=== PATIENT | female | born 1950 | race Hispanic/Latino ===

== ENCOUNTER 2019-01-28 08:56 | Emergency (ER) | payer OTHER ==
[~2019-01-28] VITALS: Ht 165.1 cm; Wt 74.8 kg
[~2019-01-28 08:56] MED LIST: EXCEDRIN EXTRA1 EAC1 PO; IBUPROFEN200 MG PO
[2019-01-28] MEDS ORDERED: ASPIRIN 81 MG CHEW TAB PO ONE (09:15)
[2019-01-28 09:43] LABS: BASOPHILS % 0.4 % (0.0-1.0); EOSINOPHILS # (AUTO) 0.2 (0.0-0.4); EOSINOPHILS % 2.9 % (0.0-6.0); HEMATOCRIT 42.2 % (34.2-44.1); HEMOGLOBIN 13.9 g/dL (12.0-16.0); LYMPHOCYTES # (AUTO) 1.6 (1.0-3.2); LYMPHOCYTES % 19.5 % (18.0-39.1); MEAN CORPUSCULAR HEMOGLOBIN 27.6 pg (28-32); MEAN CORPUSCULAR HGB CONC 32.9 g/dL (31-35); MEAN CORPUSCULAR VOLUME 83.9 fL (81-99); MONOCYTES # (AUTO) 0.3 (0.2-0.8); PLATELET COUNT 213 x10e3/uL (140-360); RED BLOOD COUNT 5.03 x10e6/uL (3.6-5.1)
[2019-01-28 10:00] LABS: ALANINE AMINOTRANSFERASE 22 IU/L (0-55); ALBUMIN 3.5 g/dL (3.5-5.0); ALKALINE PHOSPHATASE 79 IU/L (40-150); ANION GAP 13.2 mmol/L (8-16); BLOOD UREA NITROGEN 13 mg/dL (7-26); BUN/CREATININE RATIO 17 (6-25); CALCIUM 9.1 mg/dL (8.4-10.2); CARBON DIOXIDE 22 mmol/L (22-29); CHLORIDE 106 mmol/L (98-107); CREATINE KINASE 29 IU/L (29-168); CREATININE, SERUM 0.75 mg/dL (0.57-1.11); EST GLOMERULAR FILTRATION RATE > 60 ML/MIN (60-); GLUCOSE 227 mg/dL (74-118); POTASSIUM 3.2 mmol/L (3.5-5.1); SODIUM 138 mmol/L (136-145)
--- NOTE | 2019-01-28 11:54 | Diagnostic Imaging Report ---
Examination: CT head without contrast Clinical Indication: Dizziness. Weakness. Technique: Transaxial noncontrast images from the skull base through the vertex were obtained. Sagittal and coronal reformatted images were done. Dose modulation, iterative reconstruction, and/or weight based adjustment of the mA/kV was utilized to reduce the radiation dose to as low as reasonably achievable. Comparison: None. Findings: Scalp: No abnormalities. Bones: Intact. No fractures. No blastic or lytic lesions. Brain sulci: Appropriate for patient's age. Ventricles: Normal in size and configuration. No hydrocephalus. Extra-axial space: No abnormalities. Parenchyma: No masses, hemorrhage, or acute or chronic cortical based vascular insults. Suprasellar region: No abnormalities. Craniocervical junction: The foramen magnum is patent. No Chiari one malformation. Impression: No intracranial abnormality. Signed by: Dr. Sara Warner M.D. on 01/28/2019 11:51 AM
[2019-01-28] MEDS ORDERED: MECLIZINE HCL12.5 MG PO (12:09)
[2019-01-28 12:43] VITALS: BP 149/67
[2019-01-28] MEDS ORDERED: MECLIZINE HCL 12.5 MG TAB PO ONE (13:00)
== END 2019-01-28 13:13 | disposition home or self-care (01) ==
LOC: ER 08:56
DX: R53.1 Weakness (principal); R42 Dizziness and giddiness
CPT/HCPCS: 36415; 70450; 80053; 82550; 82553; 84484; 85025; 93005; 99284; J8597

== ENCOUNTER 2020-12-10 07:12 | Emergency (ER) | payer MEDICARE, OTHER ==
[~2020-12-10] VITALS: Ht 165.1 cm; Wt 74.8 kg
[~2020-12-10 07:12] MED LIST changes: +MECLIZINE HCL12.5 MG PO
[2020-12-10] MEDS ORDERED: CEFDINIR300 MG PO (08:05)
[2020-12-10] MEDS ORDERED: THERAFLU NIGHT1 EAC5 PO (08:05)
[2020-12-10] MEDS ORDERED: TESSALON PERLE100 MG PO (08:05)
[2020-12-10] MEDS ORDERED: IBUPROFEN IB200 MG PO (08:05)
== END 2020-12-10 08:23 | disposition home or self-care (01) ==
LOC: FSED 07:28
DX: R05 Cough (principal); I10 Essential (primary) hypertension; E11.9 Type 2 diabetes mellitus without complications; J06.9 Acute upper respiratory infection, unspecified; Z71.89 Other specified counseling
CPT/HCPCS: 99283